=== PATIENT | male | born 1945 | race Caucasian/White ===

== ENCOUNTER → 2016-05-17 | Outpatient (CLI) | payer OTHER ==
[~2016-05-17] MED LIST: ALL300 PO; ASPEC81 PO; FENO145T26 PO; LRT5 PO; METO25TA56 PO; OXYC1TAB3 PO; SIMV80TA2 PO; ZFRODT4 SL
[2016-05-17 13:14] LABS: AST/SGOT 22 U/L (15-37); BLOOD UREA NITROGEN 18 mg/dl (7-18); BUN/CREATININE RATIO 14.7 (10-20); CALCIUM 9.5 mg/dl (8.5-10.1); CARBON DIOXIDE 25 mmol/L (21-32); CHLORIDE 107 mmol/L (98-107); GLUCOSE 134 mg/dl (70-99); POTASSIUM 3.7 mmol/L (3.5-5.1); SODIUM 143 mmol/L (136-145); URIC ACID 3.8 mg/dl (2.6-7.2)
[2016-05-17 13:19] LABS: ALT/SGPT 38 U/L (12-78); CHOLESTEROL 180 mg/dl (0-200); CHOLESTEROL/HDL RATIO 4.3; HDL CHOLESTEROL 42 mg/dl; LDL CHOLESTEROL CALCULATED 95 mg/dl; TRIGLYCERIDES 215 mg/dl (0-150); VERY LOW DENSITY LIPOPROT CALC 43 mg/dl
[2016-05-17 13:22] LABS: ESTIMATED AVERAGE GLUCOSE 160 mg/dl; HA1C FLAG Normal (Normal)
== END | disposition home or self-care (01) ==
LOC: C.LABMFLN 08:35
PROVIDERS: ATTEND Family Medicine
DX: I10 Essential (primary) hypertension (principal); M10.9 Gout, unspecified; E78.00 Pure hypercholesterolemia, unspecified; E11.9 Type 2 diabetes mellitus without complications

== ENCOUNTER → 2016-11-15 | Outpatient (CLI) | payer OTHER ==
[2016-11-15 14:54] LABS: ALB/GLOB RATIO 1.3 (0.9-2); ALT/SGPT 37 U/L (12-78); BLOOD UREA NITROGEN 17 mg/dl (7-18); BUN/CREATININE RATIO 14.3 (10-20); CALCIUM 9.4 mg/dl (8.5-10.1); CARBON DIOXIDE 26 mmol/L (21-32); CHLORIDE 106 mmol/L (98-107); CHOLESTEROL 152 mg/dl (0-200); GLUCOSE 142 mg/dl (70-99); POTASSIUM 3.8 mmol/L (3.5-5.1); SODIUM 142 mmol/L (136-145); TRIGLYCERIDES 206 mg/dl (0-150); VERY LOW DENSITY LIPOPROT CALC 41 mg/dl
[2016-11-15 14:55] LABS: ALKALINE PHOSPHATASE 52 U/L (45-117); AST/SGOT 31 U/L (15-37); CHOLESTEROL/HDL RATIO 5.4; HDL CHOLESTEROL 28 mg/dl; LDL CHOLESTEROL CALCULATED 83 mg/dl
[2016-11-15 16:02] LABS: RATIO 5.5 mcg/mg (0-30.0)
[2016-11-16 08:03] LABS: ESTIMATED AVERAGE GLUCOSE 146 mg/dl; HA1C FLAG Normal (Normal)
== END | disposition home or self-care (01) ==
LOC: C.LABMFLN 08:22
PROVIDERS: ATTEND Family Medicine
DX: I10 Essential (primary) hypertension (principal); M10.9 Gout, unspecified; E11.9 Type 2 diabetes mellitus without complications

== ENCOUNTER 2023-06-10 08:20 | Observation (INO) ==
--- NOTE | 2023-06-10 09:54 | Pre Anesthesia Assessment ---
Date of Service June 10, 2023 Pre Sedation Assessment Vital Signs Temp Pulse Resp BP Pulse Ox O2 Del Method 06/10/23 08:46 36.8 C 60 18 140/68 98 Room Air Cardiovascular RRR, no murmur, no edema Respiratory normal respiratory effort, lungs clear to auscultation Pre-Sedation Airway Assessment Smoking Status: Former smoker Hx Sleep Apnea: No Short, Thick Neck: No Thyromental Distance: > or= 3.5 Finger Breadths Oral Cavity: + Dentures Mallampati Class: I ASA: ASA3 Notes The planned sedation has been discussed with the patient. Informed Consent was obtained. I have identified the patient, determined the appropriateness of sedation and have assessed the patient immediately prior to the procedure. All medicine(s) and interventions are by my order.
--- NOTE | 2023-06-10 09:56 | History & Physical Bridge Note ---
Date of Service June 10, 2023 History & Physical Bridge Note I have examined the patient, reviewed the History & Physical and in the interval since the performance of the History & Physical I have noted the following changes of clinical significance: no changes noted Patient with abnormal stress and LEE (which he minimizes but spouse says is significant). plan definitive evaluation by cardiac cath.
[2023-06-10] MEDS: HEPARIN (PORCINE) 1000 UNIT/ML 10 ML (CATH LAB USE ONLY) ONE (11:12)
[2023-06-10] MEDS: LIDOCAINE 1% LOCAL 20 ML VIAL ONE (11:12)
--- NOTE | 2023-06-10 11:12 | Post Anesthesia Assessment ---
Date of Service June 10, 2023 Post Sedation Assessment Vital Signs Temp Pulse Resp BP Pulse Ox O2 Del Method 06/10/23 08:46 36.8 C 60 18 140/68 98 Room Air Recovery Score Activity: Moves 4 extremities Respiration: Deep Breath/Cough Circulation: +/-20% PreAnes Value Consciousness: Fully Awake Oxygen Saturation: > 92% On Room Air Discharge Sedation Level of Care: Fast Track Phase II Post Sedation Plan On clinical assessment, the patient appears to have tolerated the sedation without complications. Patient is recovering as anticipated. Patient will continue to be monitored by nursing and may be discharged when sedation discharge criteria are met per below protocol. Upon Completions of procedure up to 15 minutes continue every 5 minute vital signs and the P.A.R. score; then discharge to a Phase I or Fast Track to Phase II per the following guidelines: * Discharge Patient to appropriate Phase II area if PAR is 8 or greater or return to pre- procedure baseline. The post - procedure orders will be as directed. * If PAR score is less than 8 or not return to pre-procedure baseline then patient will follow Phase I monitoring till PAR is reached for Phase II. The Phase I may be done in procedure room or may call to secure a Phase I area. * If naloxone or flumazenil are used for reversal, hold in Phase I for continued monitoring from when last reversal dose was given for a minimum of 60 minutes or longer pending the nurse and/or physician discretion of patient condition before discharge to Phase II. Please call the Sedation Physician to re-evaluate and complete post-note for discharge to Phase II area. Do NOT discharge from procedure sedation or Phase 1 until post- sedation evaluation note is complete by procedure /sedation MD Sedation Discharge Instructions to be given to the patient at discharge to home. [facility] Procedure Codes (Charges) Indication for Procedure Indication for procedure: hansen ABNORMAL STRESS Sedation/Anesthesia Procedure 1: Sedation/Anesthesia: 19122 Mod Sedation by the same physician;Init15 Min Child Age 5 & Up (Initial 15 min, start 1028) Total Sedation Time (minutes): 38 Procedure 2: Sedation/Anesthesia: 59651 Mod Sedation by the same physician; Ea [id number] Minutes (Additional 23 min, End 1106) Total Sedation Time (minutes): 38
[2023-06-10] MEDS: MIDAZOLAM HCL 1 MG/ML 2ML VIAL ONE ×2 (11:13→11:16)
[2023-06-10] MEDS: niCARdipine HCL INJ 2.5 MG/ML 10 ML AMP ONE (11:14)
[2023-06-10] MEDS: fentaNYL citrate PF 100 MCG/2 ML VIAL ONE (11:14)
[2023-06-10] MEDS: OPTIRAY 350 ONE (11:15)
[2023-06-10] MEDS: NITROGLYCERIN/D5W 100MCG/ML 20ML SYR ONE (11:15)
[2023-06-10] MEDS: TICAGRELOR 90 MG TAB ONE (11:16)
--- NOTE | 2023-06-10 14:05 | Electrocardiogram Report ---
Test Reason : Blood Pressure : / mmHG Vent. Rate : 060 BPM Atrial Rate : 060 BPM P-R Int : 238 ms QRS Dur : 096 ms QT Int : 468 ms P-R-T Axes : 064 074 022 degrees QTc Int : 468 ms Sinus rhythm with 1st degree A-V block Otherwise normal ECG When compared with ECG of 05-JAN-2019 09:10, T wave amplitude has increased in Lateral leads Confirmed by Azam Boyle ([id number]) on 06/10/2023 2:04:47 PM Referred By: Pako Matt Confirmed By:Jameson Boyle
--- NOTE | 2023-06-10 16:40 | Cardiac Catheterization ---
ACC Data: [facility] [employer] Cardiac Status Clinical evaluation leading to the procedure CAD Presenation: Positive Stress Test Anginal Classification: CCS III Heart Failure: No Cardiogenic Shock within 24 Hours: No Cardiac Arrest within 24 Hours: No Imaging Studies Past 6 Months: No Stress Studies Past 6 Months: Yes Stress Testing w/SPECT MPI: Yes - Positive Coronary Anatomy Dominant: Right Left Main (% Stenosis): Normal LAD (% Stenosis): Proximal (99 percent) D1 (% Stenosis): Normal D2 (% Stenosis): Normal D3 (% Stenosis): Mid (70%) Circumflex (% Stenosis): Ostial (30%) OM1 (% Stenosis): Normal L PL1 (% Stenosis): Normal RCA (% Stenosis): Proximal (40%), Mid (99 to 100%) and Distal (Less than 40%) R PDA (% Stenosis): Normal R PL1 (% Stenosis): Normal Ramus (% Stenosis): Proximal (40%) Diagnostic Physicians Name: Pako Matt MD, PhD Closure Device Percutaneous Entry Location: Radial Closure Device: Radial Band Recommendations: Medical Therapy and/or Counseling and PCI without planned CABG PCI Indication: + Stress Test Lesion Segment Name: Proximal to mid LAD Culprit Artery: Yes Stenosis Prior to Rx (%): 99% Chronic Total Occlusion: No Pre-Procedure ANIKA Flow: 2 Previously Treated Lesion: No Lesion Complexity: High/C Lesion Length (mm): 14 mm Thrombus Present: No Bifurcation Lesion: No Guidewire Across Lesion: Yes Intraprocedure Events Significant Disection: No Perforation: No Cardiac Cath Procedure Full Procedure Date June 10, 2023 Pre-Procedure Diagnosis Pre-Procedure Diagnosis: Positive Stress Test AUC Score AUC Score: 07 Post-Procedure Diagnosis Post-Procedure Diagnosis: Severe CAD and Successful PCI Procedure(s) Performed Procedure(s) Performed: Coronary Angiography, Drug Eluting Stent and Procedure (Intracoronary lithotripsy (shockwave)) Dobie Worker Pako Matt MD, PhD Estimated Blood Loss Estimated Blood Loss: 10 mL Medication(s) Medication(s): Fentanyl, Heparin, Lidocaine 1%, Nicardipine, Nitroglycerin and Versed Summary of Findings Brief description: Patient was brought to the cardiac catheterization suite where he was shaved and prepped in a sterile fashion. Sedated using IV Versed and fentanyl. Soft tissues of the right wrist were anesthetized using 2 mL of 1% Xylocaine. The right radial artery was accessed with a modified Seldinger technique and a 6 Croatian radial artery glide sheath was placed. Patient was provided anticoagulation with IV heparin and antispasmodics including nicardipine and nitroglycerin. All catheters were advanced and exchanged over a 0.035 J-tip wire. Left coronary angiography in orthogonal views with a 5 [place] Linn 4 diagnostic catheter. Right coronary angiography in orthogonal views with a 5 Croatian Linn 4 diagnostic catheter. Diagnostic catheters were removed. We moved to PCI of the LAD. A 6 Croatian EBU 3.0 guide catheter was used to engage the left main coronary artery. BMW reversal guidewire was positioned distally in the LAD. Predilatation was performed using a 2.0 x 8 mm PTCA balloon inflated initially at 8 glenny followed by 2 additional inflations to 14 glenny. Balloon was removed and tree scout angiography performed. Intracoronary lithotripsy was then performed using a 2.5 x 12 mm shockwave lithotripsy balloon inflated initially at 4 glenny with the second inflation at 6 glenny. This was removed. PCI with a 2.5 x 18 mm [place] drug-eluting stent deployed at 14 glenny. Stent balloon was removed. Guidewire was removed. Final angiographic evaluation was performed. The guide catheter was removed. Radial artery sheath was removed. Hemostasis was obtained using the radial band. Patient was hemodynamically stable and asymptomatic. He was returned to the recovery area. This ended the case. Coronary angiography findings: UGP-dubda-meuftgu vessel trifurcating into LAD, circumflex, and ramus. To mildly calcified distally without disease. LAD-large caliber and transapical. Diffuse very mild proximal disease except at the origin of the first diagonal where there is a 99% moderately calcified lesion. This also involves the ostium of the large septal branch (99%), and the small first diagonal. The LAD lesion continues into the mid segment. ANIKA II flow distal to the lesion. There is a medium caliber second diagonal without disease. The distal LAD has no significant disease. It provides a large caliber branching third diagonal which has a mid 70% stenosis. Then there is a fourth diagonal which arises immediately after the third diagonal and appears to have at least medium to large caliber but is 100% occluded at the ostium. ZMk-lrmic-tgfrsja. Ostial 30% stenosis. Provides a small to medium OM 1 which has no angiographically significant disease. Distally terminates as a large caliber branching posterolateral. This vessel has no significant disease. Jcoqi-ldlmr-oxbhddy vessel with branching distally. Proximal 40% stenosis. NUD-abqqo-jjqwzhl and dominant. Bifurcates distally into the PDA and posterolateral branches. The RCA is moderately calcified. Proximally there is an eccentric 40% stenosis. Mid segment has a 99 to 100% occlusion. Distally there is less than 40% stenosis. The PDA is large and demonstrates competitive flow from collateralization (left to right). Posterolateral branch is medium without significant disease. PCI- 0% residual stenosis post PCI No evidence of dissection or perforation post PCI ANIKA-3 flow post PCI Summary: 1. Multivessel coronary disease with severe occlusion and calcification of the LAD and RCA as described. 2. Successful complex PCI of the LAD using shockwave intracoronary lithotripsy followed by implantation of a drug-eluting stent. 3. Initiate guideline directed medical therapy for secondary prevention of coronary disease to include; low-dose aspirin, high intensity statin therapy, beta-nano, plus or minus PILI inhibitor/ARB. 4. Dual antiplatelet therapy with aspirin 81 mg daily and ticagrelor 90 mg p.o. twice daily for up to 2 years. Hemodynamics Rest Ao:: 138/61 mmHg Final Ao: 178/70 mmHg LV: Not performed Recommendations Recommendations: Medical Therapy and/or Counseling and PCI without planned CABG Radiation Exposure (mGy) 1480 mGy, fluoroscopy time 7.8 minutes Contrast (mls) 200 mL Anesthesia 3 mg Versed, 100 mcg fentanyl IV. Start time 1028, end time 1106 Procedural Complication(s) None Disposition Recovery Room\PACU I attest to the content of the Intraoperative Record and any orders documented therein. Any exceptions are noted below. PrestodiagG Card Cath Procedure Codes Cardiac Catheterization Procedure 1: Cardiovascular Cath Procedures: 24302 Coronaries Moderate Sedation Procedure 1: Sedation/Anesthesia: 40075 Mod Sedation by the same physician;Init15 Min Child Age 5 & Up (Initial 15 min, start time 1028) Procedure 2: Sedation/Anesthesia: 55345 Mod Sedation by the same physician; Ea [id number] Minutes (Additional 23 min, end time 1106) Angioplasty Procedure 1: Cardiovascular Angioplasty Procedures: 57461 PTCA; Single mafor coronary artery or branch RC LC LD (Modifier code 0715T (intracoronary lithotripsy)) Stenting Procedure 1: Cardiovascular Stent Procedures: 78724 Perc transluminal revascularization of acute sub/total occl, aMI (LAD) PG Care Time/CCT Total # of Minutes Spent Total Time Spent with Patient: Total time spent is greater than 50% in coordination of care (as documented) at patient's floor/unit and/or counseling patient:
[2023-06-10] MEDS: LOSARTAN POTASSIUM 50 MG TAB PO SCH (17:25)
[2023-06-10] MEDS: ENOXAPARIN INJ 40 MG/0.4 ML SYR SQ SCH (17:25)
[2023-06-10] MEDS: METOPROLOL TARTRATE 25 MG TAB PO SCH (19:59)
[2023-06-11 06:59] LABS: Basophils # (auto) 0.07 K/uL (0.00-0.20); Eosinophils # (auto) 0.24 K/uL (0.00-0.50); Eosinophils % (auto) 3.4 %; Hematocrit (blood only) 36.8 % (42.0-52.0); Hemoglobin 12.4 g/dl (14.0-18.0); Immature Granulocytes # (auto) 0.02 K/uL (0.01-0.20); Immature Granulocytes % (auto) 0.3 %; Lymphocytes # (auto) 2.15 K/uL (1.20-3.40); Lymphocytes % (auto) 30.8 %; Mean Corpuscular Hemoglobin 33.2 pg (25.0-34.0); Mean Corpuscular Hgb Conc 33.7 g/dL (32.0-36.0); Mean Corpuscular Volume 98.7 fL (80.0-100.0); Monocytes # (auto) 0.69 K/uL (0.11-0.59); Monocytes % (auto) 9.9 %; Neutrophils # (auto) 3.81 K/uL (1.40-6.50); Neutrophils % (auto) 54.6 %; Platelet Count 122 K/uL (130-400); RDW Coefficient of Variation 13.3 % (11.5-14.5); RDW Standard Deviation 47.8 fL (36.4-46.3); Red Blood Count 3.73 M/uL (4.70-6.10); White Blood Count 6.98 K/ul (4.8-10.8)
[2023-06-11 07:17] LABS: BUN Creatinine Ratio 14.5 (10-20); Calcium 9.2 mg/dl (8.6-10.3); Creatinine Clr Calc Pharmacy 60.3 ml/min; Est GFR (African American) 60.4 ml/min; Est GFR (Non-African American) 52.1 ml/min
[2023-06-11] MEDS: TICAGRELOR 90 MG TAB PO SCH (08:17)
[2023-06-11] MEDS: ASPIRIN 81 MG ECTAB PO SCH (08:17)
[2023-06-11] MEDS: ISOSORBIDE MONO EXTENDED REL 30 MG TABCR PO SCH (09:43)
--- NOTE | 2023-06-11 14:34 | Discharge Summary ---
Date of Service June 11, 2023 Admission HPI Per Admitting Provider Patient came to the [facility] as a planned outpatient cardiac cath. Found to have severe two-vessel coronary disease on coronary angiography. Underwent PCI with drug-eluting stent implantation in the LAD. He has significant residual coronary disease in the RCA which will be addressed at a later time. Admitted for observation overnight given complexity of LAD disease and stenting. Principal Diagnosis Severe two-vessel coronary artery disease. Abnormal stress test. Dyspnea on exertion. Atherogenic dyslipidemia Hypertension Discharge Exam Constitutional WD/WN, vitals as above Neck No JVD or bruits Respiratory Clear to auscultation bilaterally. No wheezing, rhonchi, or rales. Good air movement. Cardiovascular Regular rate and rhythm. S4 gallop. No rubs or murmurs appreciated. No edema. Musculoskeletal no cyanosis or clubbing, extremities motor strength 5/5 (Right radial access intact. Good distal perfusion.) Neurologic Cognition intact. Speech is fluent. No focal motor deficits. Ambulates normally. No tremor. Psychiatric A+Ox3, euthymic affect Discharge Data Allergies Allergy/AdvReac Type Severity Reaction Status Date / Time lisinopril AdvReac Unknown Cough Verified 06/10/23 08:00 Procedures Performed Operation Date: 06/10/23 09:30 Actual Procedures p Cineradiography w/Routine Exam - Pako Matt MD, PhD p Cath, Coronaries ONLY (no LV) - Pako Matt MD, PhD s Drug Eluting Stent SGl Vessel - Pako Matt MD, PhD s Coronary Lithotripsy - Pako Matt MD, PhD Ordered Studies 06/10/23 06:48 CL Cath Imgs for PACS use only Routine Diabetes Follow up With primary care provider Hospital Course (1) Abnormal stress test: Coronary angiography demonstrated severe two-vessel coronary artery disease. Status post complex PCI of the LAD. Tolerated procedure well. Severe residual RCA stenosis. Patient will remain on dual antiplatelet therapy with aspirin 81 mg daily and Brilinta 90 mg p.o. twice daily. His heart rate is at target but his blood pressure has been above target. He will remain on guideline directed medical therapy with low-dose aspirin, pravastatin 80 mg daily, losartan 50 mg daily, and metoprolol tartrate 12.5 mg p.o. twice daily has been added. We have also added isosorbide mononitrate 30 mg daily for anginal relief as well as to lower his blood pressure. 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 High intensity statin therapy is recommended. He tolerates pravastatin 80 mg daily. He will need an outpatient lipid panel at some point to see if we have adequately lowered his LDL given his high risk status. Could add Zetia in the future if needed. (3) Benign essential hypertension: Blood pressure is improved with the addition of isosorbide mononitrate. Continue metoprolol to tartrate and losartan. Plan He is appropriate for discharge at this time. He will be seen me in the office on 06/19/2023 at 2:30 PM. We will then make plans regarding RCA PCI. Total Time Total Time Spent Total Time Spent (In Minutes): 40 Discharge Plan Discharge Items Patient Disposition: Home - Self-Care Reason For Visit: DYSPNEA ON EXERTION, ABNORMAL STRESS Discharge Diagnosis: severe CAD S/P PCI Condition on Discharge: Good Activity: Per Instructions section Non-emergency contact: Primary Care Provider and Pattern Clerk Call non-emergency contact if: you have any medication questions, your symptoms worsen, your pain is not controlled, you have a fever, your wound has increased redness and your wound has increased drainage Follow-up/Referrals: Pako Matt MD, PhD [Physician] - 06/19/23 3:30 pm Sergio Varma MD [Primary Care Provider] - 06/19/23 2:30 pm Diet: Carb Consistent or DM2 and Heart Healthy Addtl Attending Provider Instructions: ACTIVITY RECOMMENDATIONS: It is common to feel weak and fatigue for a few days. * Do not drive or operate any motorized equipment for the next three days. * Limit stair usage (2 or 3 trips a day only) for the next three days. * Do not lift anything heavier than 10 pounds for the next three days. * Do not engage in vigorous exercise or any sports for the next five days. * You may shower the day after your procedure, but do not immerse the area for three days. Cleanse the site gently with soap and water. SPECIAL CARE INSTRUCTIONS: * You may replace the pressure dressing or band-aid the morning after the procedure. * After your procedure, it is normal to have a small bruise or small lump at the site. Examine your site daily for any change in the bruise or lump, redness, swelling, drainage or numbness. Notify your doctor if any change. BLEEDING: * If there is a small amount of bleeding at the site, lie down and apply firm pressure with a clean cloth for ten minutes. When the bleeding stops, lie quietly keeping the procedure limb straight for six hours. Notify your doctor as soon as possible. * If the bleeding does not stop after ten minutes or if there is a large amount of bleeding or spurting, call 911 immediately. Continue to lie down and hold firm pressure until help arrives. SKIN IRRITATION: * You may experience some redness and/or swelling in the area where radiation was administered. If any skin irritation occurs, please contact your family physician. FOLLOW UP VISIT: Keep any scheduled doctor appointments. Pending Studies at Discharge: No Stand-Alone Forms: My [facility] [place], Smoking Cessation Medications and DC Order Prescriptions: New Brilinta 90 mg Tablet 90 mg PO BID Qty: 180 3RF isosorbide mononitrate 30 mg Tablet Extended Release 24 Hr 30 mg PO QAM Qty: 90 3RF metoprolol tartrate 25 mg Tablet 12.5 mg PO BID Qty: 90 3RF Continued (DME) blood-glucose meter [OneTouch Ultra2 Meter] Kit See Rx Instructions .ROUTE .MEDSUPPLY Qty: 1 0RF Rx Instructions: Check BS 4x a week E11.9 (DME) OneTouch Ultra Test Strip See Rx Instructions .Route Qty: 100 3RF Rx Instructions: test strips; test 4 times a week (DME) lancets [OneTouch Delica Lancets] 33 gauge misc See Rx Instructions .ROUTE .MEDSUPPLY Qty: 100 3RF Rx Instructions: test sugars 4 x weekly DX E11.9 donepezil 10 mg tablet 10 mg PO HS 90 Days Qty: 90 1RF memantine 10 mg tablet 10 mg PO BID 90 Days Qty: 180 1RF fenofibrate micronized 200 mg capsule 200 mg PO HS Qty: 90 3RF allopurinol 300 mg tablet 300 mg PO HS Qty: 90 3RF losartan 50 mg tablet 50 mg PO HS Qty: 90 3RF nitroglycerin 0.4 mg tablet, sublingual 0.4 mg sublingual Q5M PRN (Reason: chest pain) Qty: 25 0RF Rx Instructions: do not exceed 3 doses per episode aspirin [Adult Aspirin Regimen] 81 mg tablet,delayed release (DR/EC) 81 mg PO DAILY pravastatin 80 mg tablet 80 mg PO HS glimepiride 1 mg tablet 1 mg PO BID Discharge Orders: Discharge Order (Routine); Ordered 06/11/23 Ordered By: Pako Matt Admission Data Admit Date/Time: 06/10/23 11:12 Attending Provider: Pako Matt Admit Provider: Pako Matt Primary Care Provider: Sergio Varma Coding Level of Care Code 92606 INP/OBS DISCH >30 MIN Diagnoses Abnormal stress test R94.39 Atherogenic dyslipidemia E78.5 Benign essential hypertension I10
== END 2023-06-11 15:45 | disposition home or self-care (01) ==
LOC: CC 08:20 → 2S 08:20
PROC: CLB.CCO (2023-06-10 09:30)